=== PATIENT | female | born 1980 | race African-American/Black ===

== ENCOUNTER 2017-08-04 19:11 | Emergency (ER) | payer OTHER ==
[~2017-08-04 19:11] MED LIST: HYDR-2768 PO
[2017-08-04 19:52] VITALS: BP 192/88; PULSE 78; RESP 16; TEMP 98.2; O2SAT 100
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
[2017-08-04] MEDS ORDERED: KETOROLAC TROMETHAMINE 60 MG/2 ML (IM) VIAL IM ONE (22:00)
[2017-08-04] MEDS ORDERED: ORPHENADRINE INJ 60 MG/2 ML AMP IM ONE (22:00)
[2017-08-04] MEDS ORDERED: ACETAMINOPHEN/HYDROcodone 325 MG/5 MG TAB PO ONE (22:00)
[2017-08-04] MEDS ORDERED: VITA1000 PO (22:41)
[2017-08-04] MEDS ORDERED: DICL50TA PO (22:41)
[2017-08-04] MEDS ORDERED: TRAM50TA PO (22:41)
[2017-08-04] MEDS ORDERED: TOPI100 PO (22:41)
[2017-08-04] MEDS ORDERED: TETANUS/DIPHTHERIA TOXOID ADULT 0.5 ML VIAL IM ONE (23:00)
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
[2017-08-04] MEDS ORDERED: ROBA500T PO (23:41)
[2017-08-04] MEDS ORDERED: NORC5TAB PO (23:41)
== END 2017-08-05 01:12 | disposition home or self-care (01) ==
LOC: NEPD 19:11
DX: S00.93XA Contusion of unspecified part of head, initial encounter (principal); S16.1XXA Strain of muscle, fascia and tendon at neck level, initial encounter; S80.12XA Contusion of left lower leg, initial encounter; S80.11XA Contusion of right lower leg, initial encounter; V49.40XA Driver injured in collision with unspecified motor vehicles in traffic accident, initial encounter; Y92.410 Unspecified street and highway as the place of occurrence of the external cause; Z23 Encounter for immunization
CPT/HCPCS: 70450; 72125; 73552; 90471; 90714; 96372; 99284; J1885; J2360